=== PATIENT | female | born 1950 | race Caucasian/White ===

== ENCOUNTER 2017-11-18 13:21 | Outpatient (CLI) | payer OTHER ==
[2017-11-18 13:43] LABS: BASOPHILS # (AUTO) 0.1 10^3/uL (0.0-0.1); BASOPHILS % (AUTO) 1.1 %; EOSINOPHILS # (AUTO) 0.2 10^3/uL (0.0-0.7); EOSINOPHILS % (AUTO) 2.5 %; HGB - HEMOGLOBIN 14.7 g/dL (12.0-16.0); LYMPHOCYTES # (AUTO) 1.6 10^3/uL (1.5-3.5); LYMPHOCYTES % (AUTO) 25.1 %; MEAN CORPUSCULAR HEMOGLOBIN 29.8 pg (27.0-31.0); MEAN CORPUSCULAR VOLUME 87.7 fL (81.0-99.0); MEAN PLATELET VOLUME 7.5 fL (7.9-10.8); MONOCYTES # (AUTO) 0.7 10^3/uL (0.0-1.0); MONOCYTES % (AUTO) 9.9 %; NEUTROPHILS % (AUTO) 61.4 %; PLT - PLATELET COUNT 281 10^3/uL (130-450); RED BLOOD COUNT 4.91 10^6/uL (4.20-5.40); RED CELL DISTRIBUTION WIDTH 13.7 % (12.0-15.0); WHITE BLOOD COUNT 6.6 x10^3/uL (4.8-10.8)
== END 2017-11-18 13:22 | disposition home or self-care (01) ==
LOC: LAB 13:21
PROVIDERS: ATTEND Nurse Practitioner Family
DX: K92.1 Melena (principal); R12 Heartburn; R14.0 Abdominal distension (gaseous)
CPT/HCPCS: 36415; 85025

== ENCOUNTER 2017-12-15 13:22 | Outpatient (CLI) | payer OTHER ==
--- NOTE | 2017-12-15 21:09 | Ultrasound Report ---
Reason: MELENA,HEARTBURN,BLOATING,BORBORYGMI,FLATULENCE Procedure Date: 12/15/2017 Accession Number: [id number] / [id number] Procedure: US - Pelvic w/Transvaginal CPT Code: FULL RESULT: EXAM: PELVIC ULTRASOUND EXAM DATE: 12/15/2017 01:35 PM. CLINICAL HISTORY: Melena, heartburn, bloating,borborygmi, flatulence. COMPARISON: None. TECHNIQUE: Realtime transabdominal pelvic scan performed to identify the uterus and adnexa and as an overview of other pelvic structures, followed by transvaginal scan to provide greater detail of the uterus and adnexa, with static image documentation. FINDINGS: Uterus: 5.3 x 2.6 x 3 cm, volume 21.5 cc. Retroverted and retroflexed position. Normal overall size and echotexture. Masses: None. Endometrium: 2 mm. Normal. Cervix: Unremarkable. Right Ovary: 1.5 x 1.7 x 1.2 cm, volume 1.6 cc. Normal echotexture and blood flow. Left Ovary: Left adnexa, presumed cystic lesion measuring 2.3 x 2.5 x 2.1 cm, volume 6.3 cc. This left ovarian cyst probably replaces the majority of the parenchyma. No concerning features. Normal echotexture and blood flow. Free Fluid: None. Other: None. IMPRESSION: 1. 2.5 cm anechoic left adnexal cyst presumed to be ovarian in origin. No concerning features. No left adnexal mass. 2. Normal right ovary and adnexa. 3. Endometrium measures 2 mm. No mass or polyp. No uterine fibroids. [facility]
== END 2017-12-15 13:23 | disposition home or self-care (01) ==
LOC: DI 13:22
PROVIDERS: ATTEND Nurse Practitioner Family
DX: K92.1 Melena (principal); R12 Heartburn; R14.0 Abdominal distension (gaseous)
CPT/HCPCS: 76830; 76856

== ENCOUNTER 2017-12-15 13:25 | Outpatient (CLI) | payer OTHER ==
--- NOTE | 2017-12-16 14:17 | MRI Report ---
Reason: PRIMARY OSTEOARTHRITIS OF RIGHT KNEE Procedure Date: 12/15/2017 Accession Number: [id number] / [id number] Procedure: MRI - Knee RT W/O CPT Code: FULL RESULT: EXAM: RIGHT KNEE MRI WITHOUT CONTRAST EXAM DATE: 12/15/2017 03:57 PM. CLINICAL HISTORY: Knee pain, primary osteoarthritis. COMPARISON: None. TECHNIQUE: Multiplanar, multisequence T1-weighted and fluid-sensitive sequences of the knee without contrast. Other: None. FINDINGS: Cruciate ligaments: The anterior and posterior cruciate ligaments appear intact. Medial meniscus: Ill-defined partial-thickness horizontal tear extending to the tibial articular surface of the body and outer aspect of the posterior horn. Lateral meniscus: Complex oblique radial tear and degeneration involving the anterior horn. Truncation and blunting of the free margin at the body and anterior horn junction. Collateral ligaments: The medial and fibular collateral ligament appear intact. Bones and articular surfaces: Mild cartilage thinning, fissuring and irregularity in the weight-bearing lateral compartment with patchy subchondral edema. Mild cartilage thinning in the medial and patellofemoral compartments. Minimal joint effusion. Small popliteal cyst. Extensor mechanism: The patellar tendon and quadriceps insertion appear intact. Nonspecific edema superficial to the patellar tendon. IMPRESSION: 1. Complex oblique radial tear and prominent intrasubstance degeneration at the anterior horn lateral meniscus. 2. Small ill-defined partial-thickness horizontal tear involving the body and outer posterior horn of the medial meniscus. 3. Moderate lateral compartment osteoarthritis. 4. Mild cartilage thinning in the medial and patellofemoral compartments. [facility] MUSCULOSKELETAL RADIOLOGY SECTION
== END 2017-12-15 13:26 | disposition home or self-care (01) ==
LOC: DI 13:25
PROVIDERS: ATTEND Nurse Practitioner
DX: M17.11 Unilateral primary osteoarthritis, right knee (principal); S83.281A Other tear of lateral meniscus, current injury, right knee, initial encounter; S83.241A Other tear of medial meniscus, current injury, right knee, initial encounter; K92.1 Melena; R12 Heartburn; R14.0 Abdominal distension (gaseous)
CPT/HCPCS: 76830; 76856